=== PATIENT | female | born 1945 | race Caucasian/White ===

== ENCOUNTER → 2020-07-25 | Outpatient (CLI) | payer OTHER ==
[~2020-07-25] MED LIST: CEFP200 PO; FENO160 PO; GLIP5 PO; HYDR1TAB94 PO; LOSA50 PO; METF500 PO; SITA25T2; TAMS.4ER PO
== END | disposition home or self-care (01) ==
LOC: EDSEX 15:15 → LAB 15:15 → LAB SHORT 15:15
DX: M54.5 Low back pain (principal); R30.0 Dysuria
CPT/HCPCS: 87086